=== PATIENT | male | born 1935 | race Caucasian/White ===

== ENCOUNTER → 2016-10-23 | Outpatient (CLI) | payer OTHER ==
[~2016-10-23] MED LIST: MAGNESIUM OXID400 MG PO; VASOTEC10 MG PO; XANAX 0.25 MG0.25 MG PO
== END ==
LOC: CAT 09:14
DX: C61 Malignant neoplasm of prostate (principal)

== ENCOUNTER → 2018-07-31 | Outpatient (CLI) | payer OTHER | LOC: CAT 10:19 | DX: K57.90 Diverticulosis of intestine, part unspecified, without perforation or abscess without bleeding (principal); I25.10 Atherosclerotic heart disease of native coronary artery without angina pectoris; K80.80 Other cholelithiasis without obstruction; A41.9 Sepsis, unspecified organism; M81.0 Age-related osteoporosis without current pathological fracture; M47.816 Spondylosis without myelopathy or radiculopathy, lumbar region; K40.90 Unilateral inguinal hernia, without obstruction or gangrene, not specified as recurrent; N28.1 Cyst of kidney, acquired; J98.4 Other disorders of lung; Z90.79 Acquired absence of other genital organ(s); Z95.820 Peripheral vascular angioplasty status with implants and grafts ==